=== PATIENT | male | born 1955 | race Caucasian/White ===

== ENCOUNTER 2022-01-09 06:28 | Day surgery (SDC) | payer MEDICARE, MEDICAID ==
[2022-01-08 15:23] LABS: BASOPHILS % (AUTO) 0.4 % (0-1); EOSINOPHILS # (AUTO) 0.2 X10'3 (0-0.9); EOSINOPHILS % (AUTO) 2.1 % (0-6); HEMATOCRIT 48.6 % (42.0-52.0); HEMOGLOBIN 16.7 g/dl (14.0-17.9); LYMPHOCYTES # (AUTO) 1.9 X10'3 (1.1-4.8); LYMPHOCYTES % (AUTO) 26.2 % (21-51); MEAN CORPUSCULAR HEMOGLOBIN 31.2 PG (27.0-31.0); MEAN CORPUSCULAR HGB CONC 34.4 g/dL (33.0-36.5); MEAN CORPUSCULAR VOLUME 90.8 FL (78-98); MEAN PLATELET VOLUME 7.1 FL (7.4-10.4); MONOCYTES # (AUTO) 0.7 X10'3 (0-0.9); MONOCYTES % (AUTO) 9.3 % (2-12); NEUTROPHILS # (AUTO) 4.5 X10'3 (1.8-7.7); PLATELET COUNT 245 X10'3 (140-440); RED BLOOD COUNT 5.35 X10'6 (4.70-6.10); RED CELL DISTRIBUTION WIDTH 14.6 % (11.5-14.5); WHITE BLOOD COUNT 7.2 X10'3 (4.5-11.0)
[2022-01-08 15:39] LABS: APTT 25 SECONDS (22-32)
[2022-01-08 15:42] LABS: ALANINE AMINOTRANSFERASE 47 U/L (12-78); ALBUMIN 3.8 G/DL (3.4-5.0); ALBUMIN/GLOBULIN RATIO 0.9 (1.1-1.5); ALKALINE PHOSPHATASE 45 IU/L (46-116); ANION GAP 7 (8-16); ASPARTATE AMINO TRANSFERASE 21 U/L (10-37); BILIRUBIN,TOTAL 0.7 MG/DL (0.1-1.0); BLOOD UREA NITROGEN 14 MG/DL (7-18); BUN/CREATININE RATIO 11.5 (5.4-32.0); CALCIUM 9.2 MG/DL (8.5-10.1); CHLORIDE 106 MMOL/L (99-107); CREATININE 1.22 MG/DL (0.60-1.10); GLUCOSE 121 MG/DL (70-104); SODIUM 142 MMOL/L (135-145); TOTAL CARBON DIOXIDE 28.8 MMOL/L (24-32); eGFR 60 ML/MIN
[~2022-01-09] VITALS: Ht 177.8 cm; Wt 110.8 kg
[2022-01-09] VITALS (13 sets, daily range): BP systolic 114–140; BP diastolic 56–99
[2022-01-09] MEDS ORDERED: LORazepam 0.5 MG tablet PO PRN (07:00)
[2022-01-09] MEDS ORDERED: diphenhydrAMINE 25mg capsule PO PRN (07:00)
[2022-01-09] MEDS ORDERED: normal saline 1,000 ML IV SCH (07:00)
[2022-01-09] MEDS ORDERED: nitroGLYCERIN 0.4mg SUBLingual tab SL PRN (07:00)
[2022-01-09] MEDS ORDERED: HYDR12.55 PO (07:35)
[2022-01-09] MEDS ORDERED: ROSU10TA28 PO (07:35)
[2022-01-09] MEDS ORDERED: CAND16TA29 PO (07:35)
[2022-01-09] MEDS ORDERED: AMLO5TAB16 PO (07:35)
[2022-01-09] MEDS ORDERED: LIDOcaine 1%/PF 5ML 10 MG/ML VIAL ONE (08:44)
[2022-01-09] MEDS ORDERED: fentaNYL/PF 50MCG/1 ML 2ML syringe ONE (08:44)
[2022-01-09] MEDS ORDERED: midazolam 1 mg/ML 2ml injection ONE ×2 (08:44→09:45)
[2022-01-09] MEDS ORDERED: iohexol 350MG/ML 100ml bottle IV ONE ×2 (08:44→09:53)
[2022-01-09] MEDS ORDERED: ondansetron/PF 4mg/2ml inj IV PRN (10:35)
[2022-01-09] MEDS ORDERED: normal saline 1000ml 1,000 ML IV SCH (10:35)
[2022-01-09] MEDS ORDERED: OXAZEpam 15mg capsule PO PRN (10:40)
[2022-01-09] MEDS ORDERED: proCHLORperazine 10 MG/2 ml inj IV PRN (10:40)
[2022-01-09] MEDS ORDERED: HYDROcodone/acetaminophen 10/325mg tab PO PRN (10:40)
[2022-01-09] MEDS ORDERED: HYDROcodone/acetaminophen 5mg/325mg tablet PO PRN (10:40)
[2022-01-09] MEDS ORDERED: ACETYLCYSTEINE 200 MG/1 ML 4 ML ORAL SOLUTION PO SCH (20:00)
== END 2022-01-09 15:50 | disposition home or self-care (01) ==
LOC: SSTAY O 06:28
PROVIDERS: ATTEND Internal Medicine Cardiovascular Disease
DX: R94.39 Abnormal result of other cardiovascular function study (principal); I10 Essential (primary) hypertension; E78.5 Hyperlipidemia, unspecified; I73.9 Peripheral vascular disease, unspecified; F17.210 Nicotine dependence, cigarettes, uncomplicated; Z79.899 Other long term (current) drug therapy; Z98.890 Other specified postprocedural states; Z79.01 Long term (current) use of anticoagulants
CPT/HCPCS: 36415; 71046; 80053; 85025; 85610; 85730; 93005; 93458; 99152; C1760; C1769; J1644; J2250; J3010; J3490; J7030; Q9967; 99153; A4620; A6258